=== PATIENT | male | born 1995 | race Caucasian/White ===

== ENCOUNTER 2023-02-04 12:00 | Outpatient (RCR) | payer OTHER, SELFPAY ==
[2023-01-21 10:45] VITALS: BP 135/85; PULSE 73; TEMP 36.6
[2023-01-21 10:46] VITALS: BMI 24.7
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
--- NOTE | 2023-01-21 15:25 | HO.PHP ---
Clients case was reviewed and opened today in treatment team.
--- NOTE | 2023-01-29 09:45 | PC.NURSE ---
Leonidas did not show up to the program this morning. I called Leonidas and left 2 messages asking him to call me back. In his VM message it stated to email him or text him as he will get back to the caller sooner. Staff emailed him as well.
--- NOTE | 2023-01-29 10:11 | HO.PHP ---
I called and left a message with the client to inform him that he can not come in after because the first group is almost over and he did not call . Asha left him an email with the same information.
--- NOTE | 2023-01-29 10:12 | PC.NURSE ---
Leonidas called and left a message apologizing for not being at the program this morning and that he is on his way now at 10:00. Esther Adam called Leonidas to f/u.
--- NOTE | 2023-02-01 09:59 | HO.PHPPROGNO ---
Subjective Subjective Date of Service: 02/01/23 Reason For Visit: adjustment d/o Medical Problems Affecting Mental Status: No Interim History: I'm not doing well . Depressed mood and affect. Used cannabis over weekend. Had contact with estranged , was tearful upon speaking of the encounter. No SI, no safety concerns. Medication Compliance: Yes Side effects from medications: No Attending Groups: Yes Review of Systems Acute medical concerns: No Medical Review of Systems: unchanged Review of Systems Review of Systems Yes all other systems are reviewed and are negative Constitutional: Reports no additional constitutional complaints Mental Status Exam Mental Status Exam Narrative: NAD Patient Appearance: Appropriate Patient Orientation: Person, Place, Time and Situation Level of Consciousness: Appropriate and Alert Patient Behavior: Appropriate, Cooperative and Poor Eye Contact Mood Description: Depressed Affect Description: Depressed Patient Cognition Impaired: No Ability to Follow Directions: Excellent Speech Pattern: Clear, Appropriate and Coherent Memory Description: Intact Hallucinations: None Delusions: Not Present Thought Process: Intact Thought Content: positive for Intact Depressive Symptoms: Diff. Making Decisions, Loss of Int. in Activity, Hopelessness, Feelings of Guilt, Low Self Esteem and Difficulty Concentrating Judgement: Fair Diagnostics Vital Signs (24Hr): BMI result Body Mass Index 24.7 Assessment & Plan Assessment & Plan (1) MDD (major depressive disorder), recurrent episode, severe: Status: Acute Code(s): F33.2 - Major depressive disorder, recurrent severe without psychotic features Assessment and Plan: Depressed mood and affect. Tearful at times. Used cannabis over weekend. States that he has been experiencing increased anxiety and depression. When he went home from program on he over used cannabis, fell asleep. Did not wake up in time to come to program on Wednesday. We discussed post-acute withdrawal syndrome. Gave patient information. He states that he definitely has experienced these symptoms. He also had been using cannabis in excess because he does not want to ?feel my feelings ?. He states that he understands this is not healthy, and that he has to work through his feelings, no matter how uncomfortable they may be. Finding therapeutic groups helpful in program to be able to work on these issues. Had contact with estranged , was tearful upon speaking of the encounter. States that she had come to the house to pack up her belongings on Wednesday. She woke him up by knocking, and found him with all of his cannabis paraphernalia strewn about. He experience guilt and shame. Reports that he is grieving the marriage, finding it difficult. He has a new friend, states that he is trying to not replace this woman with his , but to maintain a healthy friendship at this time. No SI, no safety concerns. Also expressed financial concerns. States that he feels inadequate regarding finding a job, due to his current mental health. Has had several job interviews, states he feels he did not interview well due to his depression. Experiencing difficulty getting up in out of bed in the morning, attention to ADLs/IADLs, concentration. We discussed option of trying low-dose Wellbutrin at this time. Reviewed risks and benefits, side effects both mild and more severe. (2) Cannabis abuse: Status: Acute Code(s): F12.10 - Cannabis abuse, uncomplicated Plan 1. Continue with current [facility] plan of care. 2. Start Wellbutrin 100 mg daily. 3. Continue with other medications as currently prescribed. 4. Follow-up as per protocol. Patient educated on: diagnosis, medication risk/benefits, substance abuse and therapeutic strategies Informed Consent: understands Reason for contiued partial hosp. stay Substantial Risk for: harm to self, inability to function and rapid decompensation Certification I certify that partial hospital treatment is medically necessary due to the symptoms and problems resulting from the patient's mental illness and the failure to treat the patient at the partial hospital level of care would likely result in the patient requiring inpatient psychiatric care which could not be prevented at a less intensive level of care. Total time managing care of this patient today __30__ minutes. Discharge Plan Discharge Attending provider: Royal Ding Medications: New bupropion HCl 100 mg tablet 100 mg PO DAILY Qty: 14 0RF No Action sertraline 100 mg tablet 125 mg PO DAILY Patient Comments: Patient reports Sertraline was increased recently from 100 mg to 125 mg daily. loratadine [Claritin] 10 mg Tablet 10 mg PO DAILY melatonin 5 mg Tablet 5 mg PO BEDTIME PRN (Reason: Insomnia)
--- NOTE | 2023-02-04 13:58 | HO.PHPPROGNO ---
Subjective Subjective Date of Service: 02/04/23 Reason For Visit: adjustment d/o Medical Problems Affecting Mental Status: No Interim History: Continues with anxious mood, states that it is manageable. Finding Wellbutrin helpful, would like a lower dose. No SI, no safety concerns. Continues using significant amount of cannabis, plans to work on stopping. Feels stable for discharge from [facility] at this time. Medication Compliance: Yes Side effects from medications: Yes (Wellbutrin some restlessness, would like lower dose) Attending Groups: Yes Review of Systems Acute medical concerns: No Medical Review of Systems: unchanged Review of Systems Review of Systems Yes all other systems are reviewed and are negative Constitutional: Reports no additional constitutional complaints Mental Status Exam Mental Status Exam Narrative: NAD Patient Appearance: Appropriate Patient Orientation: Person, Place, Time and Situation Level of Consciousness: Appropriate and Alert Patient Behavior: Appropriate, Cooperative and Good Eye Contact Mood Description: Anxious (Improving) Affect Description: Appropriate Patient Cognition Impaired: No Ability to Follow Directions: Excellent Speech Pattern: Clear, Appropriate and Coherent Memory Description: Intact Hallucinations: None Delusions: Not Present Thought Process: Intact Thought Content: positive for Intact Depressive Symptoms: Increased Anxiety (Improving) and Diff. Making Decisions Judgement: Good Diagnostics Vital Signs (24Hr): BMI result Body Mass Index 24.7 Assessment & Plan Assessment & Plan (1) MDD (major depressive disorder), recurrent episode, severe: Status: Acute Code(s): F33.2 - Major depressive disorder, recurrent severe without psychotic features Assessment and Plan: States that his mood is ?not bad ?. Denies any depression, states that he does have some anxiety, but that it is manageable at this time. Has found program helpful. Would like a lower dose of Wellbutrin, as he is finding it very helpful, but states that it made him feel as if he had had several cups of coffee. He has an upcoming meeting with an outpatient psychiatric provider on February 17, he is looking forward to this. We discussed lowering Wellbutrin dose to 75 mg daily. He was in agreement with this. He was instructed to stop taking it if it continues to make him feel activated in any way. He has also try to cut down on his caffeine intake. He was able to express acceptance with upcoming divorce, states that he understands he had a part in this relationship ending. Expressed hope for the future, states that he plans to begin applying for jobs as his mental health improves. Feels stable for discharge from [facility] at this time. (2) Cannabis abuse: Status: Acute Code(s): F12.10 - Cannabis abuse, uncomplicated Assessment and Plan: Continues using cannabis, reports he has become more aware of its affects on his mental health, plans to continue cutting down use, with goal of cessation. Plan 1. Decrease Wellbutrin to 75 mg daily. Thirty day script sent to pharmacy. 2. Patient appears stable for discharge from [facility] at this time. 3. Patient to follow-up with outpatient providers going forward. Patient educated on: diagnosis, medication risk/benefits, substance abuse and therapeutic strategies Informed Consent: understands Reason for contiued partial hosp. stay Substantial Risk for: stable for discharge Certification I certify that partial hospital treatment is medically necessary due to the symptoms and problems resulting from the patient's mental illness and the failure to treat the patient at the partial hospital level of care would likely result in the patient requiring inpatient psychiatric care which could not be prevented at a less intensive level of care. Total time managing care of this patient today ____20 minutes. Discharge Plan Discharge Attending provider: Royal Ding Additional Instructions: Leonidas was discharged on February 04, 2023 and is going to continue with his outside providers to continue receiving therapeutic support. Leonidas has an OP therapist, Caro Stoddard, who is through a private practice in [place], [place] called [facility]. Leonidas mentioned his next appointment with Caro is next Thursday, February 09, 2023 at 2 PM and he meets with her on a weekly basis. Leonidas has a med provider, Josette Guerrero, through [facility] in [place], [place]. Leonidas noted his next appointment with her is February 17, 2023. Leonidas was uncertain of the time. Medications: New bupropion HCl 75 mg tablet 75 mg PO DAILY Qty: 30 0RF No Action sertraline 100 mg tablet 125 mg PO DAILY Patient Comments: Patient reports Sertraline was increased recently from 100 mg to 125 mg daily. loratadine [Claritin] 10 mg Tablet 10 mg PO DAILY melatonin 5 mg Tablet 5 mg PO BEDTIME PRN (Reason: Insomnia) Stand Alone Forms: Patient Portal Discharge page Patient Education: Depression (DC)
== END 2023-02-04 23:59 | disposition home or self-care (01) ==
LOC: HO.PHPA 12:00
PROVIDERS: Visit Provider Psychiatry & Neurology Psychiatry
DX: F33.2 Major depressive disorder, recurrent severe without psychotic features (principal); F60.3 Borderline personality disorder; F12.10 Cannabis abuse, uncomplicated; Z79.899 Other long term (current) drug therapy
CPT/HCPCS: 90791; 90853